=== PATIENT | male | born 2005 | race Caucasian/White ===

== ENCOUNTER 2024-02-25 01:10 | Emergency (ER) | payer SELFPAY ==
--- NOTE | ~2024-02-25 | CT_ITS ---
Noncontrast CT scan of the cervical spine Technique: Multiple contiguous axial [address] images of the cervical spine were obtained and rec onstructed in 2D sagittal and coronal planes on the acquisition scanner. Dose reduction technique was used on this scan by utilizing automated exposure control, adjustment of the mA and/or kV according to patient size. The dose-length product (DLP) was 510.90 mGy-cm. Clinical History: Pain Findings: No fractures or dislocations. There is mild reversal of the normal cervical lordosis. No o ther significant osseous abnormality seen. The intervertebral disc spaces are preserved. No preverte bral soft tissue swelling. Impression: No fracture or subluxation of the cervical spine. Mild reversal normal cervical lordosis. Reviewed, dictated and finalized at location . Impression: No fracture or subluxation of the cervical spine. Mild reversal normal cervical lordosis.
--- NOTE | ~2024-02-25 | CT_ITS ---
Non-contrast Head CT History: Unresponsive Technique: Axial non-contrast imaging of the brain was performed. Dose reduction technique was used on this scan by utilizing automated exposure control and iterative reconstruction technique. The dose -length product (DLP) was 605.33 mGy-cm. Findings: There is no evidence of intracranial hemorrhage, mass lesion, or acute infarct. Brain par enchyma appears normal. The ventricles and subarachnoid spaces are normal in size. The calvarium ap pears normal. The visualized paranasal sinuses and mastoid air cells are clear. Impression: No significant abnormality seen. Reviewed, dictated and finalized at location . Impression: No significant abnormality seen.
[2024-02-25 01:11] VITALS: BP 113/52; PULSE 74; RESP 24; TEMP 36.4; O2SAT 71
--- NOTE | 2024-02-25 01:18 | ECG_ITS ---
Test Date: 2024-02-25 01:20:18 Measurements Intervals [place] Rate: 74 P: 53 CO: 166 QRS: 55 QRSD: 112 T: 42 QT: 365 QTc: 407 Interpretive Statements SINUS RHYTHM INTRAVENTRICULAR CONDUCTION DELAY BORDERLINE ECG No previous ECG available for comparison Electronically Signed On 02-25-2024 06:46:30 CDT by Arden Shepherd D.O.
[2024-02-25 01:19] VITALS: PULSE 79
[2024-02-25 01:22] VITALS: BP 113/52; PULSE 76; RESP 18; TEMP 36.4; O2SAT 99
[2024-02-25 02:05] LABS: Basophils Absolute Auto 0.2 K/mm3 (0.0-0.1); Basophils Percent Auto 1.7 % (0.2-1.2); Eosinophils Absolute Auto 0.1 K/mm3 (0-0.3); Eosinophils Percent Auto 1.2 % (0-4.4); Hematocrit 43.7 % (42.0-52.0); Hemoglobin 15.1 g/dL (14.0-18.0); Immature Granulocyte Absolute 0.05 K/mm3 (0.00-0.031); Immature Granulocyte Percent A 0.6 % (0-0.5); Lymphocytes Absolute Auto 2.94 K/mm3 (0.9-3.2); Lymphocytes Percent Auto 32.8 % (18.3-44.2); Mean Corpuscular HGB Conc 34.6 g/dl (32-36); Mean Corpuscular Hemoglobin 32.1 pg (26-34); Mean Corpuscular Volume 92.8 fl (80-100); Mean Platelet Volume 11.1 fl (7.4-10.4); Monocytes Absolute Auto 0.6 K/mm3 (0.1-0.6); Monocytes Percent Auto 6.3 % (2.6-8.5); Neutrophils Absolute Auto 5.2 K/mm3 (1.3-6.7); Neutrophils Percent Auto 57.4 % (45.5-73.1); Platelet Count Result 204 k/mm3 (150-375); Red Blood Count 4.71 M/mm3 (4.6-6.20); Red Cell Distribution Width 12.6 % (11.5-14.5)
[2024-02-25 02:20] LABS: Anion Gap 16 mmol/L (4-12); Blood Urea Nitrogen 10 mg/dL (9-20); Carbon Dioxide 25 mmol/L (22-30); Chloride 102 mmol/L (98-107); Estimated CRCL calculation 114 ml/min; Estimated Glomerular Filt Rate > 60; Glucose 104 mg/dL (65-110); Potassium 3.5 mmol/L (3.4-5.0); Sodium 143 mmol/L (137-145)
[2024-02-25 02:24] VITALS: O2SAT 100
[2024-02-25 02:45] LABS: Ethanol 455 mg/dL (<10)
--- NOTE | 2024-02-25 03:20 | ED.GENADULT ---
HPI - General Adult General Chief complaint: Alcohol Stated complaint: unresponsive, etoh Time Seen by Provider: 02/25/24 01:29 History of Present Illness HPI narrative: Patient is a 19-year-old male who presents ER after being found unconscious on a sidewalk outside of a bar. Patient has an abrasion to the lateral eyebrow on the right side. Unable to provide a history. Narcan given with no response. Patient had a friend urine him he also woke up and ran away. Related Data Allergies Allergy/AdvReac Type Severity Reaction Status Date / Time No Known Allergies Allergy Unverified 09/15/19 08:29 Review of Systems Review of Systems: ROS unobtainable: Yes unobtainable due to medical condition PMFSH Past Medical History Medical History (Updated 02/25/24 @ 06:30 by Ruddy Laughlin MD) Pilonidal cyst Family History Family History (Updated 07/29/18 @ 08:18 by DOCTOR UNKNOWN) Other Diabetes mellitus Family history of cardiovascular disease Family history of kidney disease Family history of malignant neoplasm Social History Social History Smoking status: Never smoker Alcohol intake: never Exam Narrative: GENERAL: Intoxicated and sleeping, well-nourished, and in no acute distress. HEAD: Normocephalic, abrasion lateral to the right eyebrow. EYES: PERRL and EOMI. NECK: C-spine immobilized. ENT: Mucous membranes moist. CHEST: Clear to auscultation. No respiratory distress. HEART: Regular rate and rhythm. Normal peripheral pulses. ABDOMEN: Soft, nontender, nondistended. EXTREMITIES: Normal range of motion. No edema. SKIN: Warm, dry, no rash. PSYCH: Normal mood and affect. Course Course Emergency Course: 0323: Patient is sleeping. Father bedside. Discussed plan is to observe until clinically sober. 0627: patient awake alert orient x3. Mildly intoxicated. Father here bedside and feels comfortable taking patient home. Vital Signs Vital signs: Vital Signs Temperature 97.5 F L 02/25/24 01:11 Pulse Rate 74 02/25/24 01:11 Respiratory Rate 24 H 02/25/24 01:11 Blood Pressure 113/52 L 02/25/24 01:11 Pulse Oximetry 71 L 02/25/24 01:11 Oxygen Delivery Room Air 02/25/24 01:11 Temperature 97.5 F L 02/25/24 01:22 Pulse Rate 65 02/25/24 05:06 Respiratory Rate 16 02/25/24 05:06 Blood Pressure 116/55 L 02/25/24 05:06 Pulse Oximetry 100 02/25/24 05:06 Oxygen Delivery Room Air 02/25/24 02:24 Oxygen Flow Rate 15 02/25/24 01:22 Medical Decision Making Vital Signs Vital Signs: Vital Signs Temperature 97.5 F L 02/25/24 01:11 Pulse Rate 74 02/25/24 01:11 Respiratory Rate 24 H 02/25/24 01:11 Blood Pressure 113/52 L 02/25/24 01:11 Pulse Oximetry 71 L 02/25/24 01:11 Oxygen Delivery Room Air 02/25/24 01:11 Temperature 97.5 F L 02/25/24 01:22 Pulse Rate 65 02/25/24 05:06 Respiratory Rate 16 02/25/24 05:06 Blood Pressure 116/55 L 02/25/24 05:06 Pulse Oximetry 100 02/25/24 05:06 Oxygen Delivery Room Air 02/25/24 02:24 Oxygen Flow Rate 15 02/25/24 01:22 Lab Data 02/25/24 01:58 02/25/24 01:58 Labs: Lab Results 02/25/24 Range/Units 01:58 WBC 9.0 (4.5-10.0) K/mm3 RBC 4.71 (4.6-6.20) M/mm3 Hgb 15.1 (14.0-18.0) g/dL Hct 43.7 (42.0-52.0) % MCV 92.8 (80-100) fl MCH 32.1 (26-34) pg MCHC 34.6 (32-36) g/dl RDW 12.6 (11.5-14.5) % Plt Count 204 (150-375) k/mm3 MPV 11.1 H (7.4-10.4) fl Immature Gran % (Auto) 0.6 H (0-0.5) % Neut % (Auto) 57.4 (45.5-73.1) % Lymph % (Auto) 32.8 (18.3-44.2) % [place] % (Auto) 6.3 (2.6-8.5) % Eos % (Auto) 1.2 (0-4.4) % Baso % (Auto) 1.7 H (0.2-1.2) % Lymph # (Auto) 2.94 (0.9-3.2) K/mm3 [place] # (Auto) 0.6 (0.1-0.6) K/mm3 Eos # (Auto) 0.1 (0-0.3) K/mm3 Baso # (Auto) 0.2 H (0.0-0.1) K/mm3 Abs Immat Gran (auto) 0.05 H (0.00-0.031) K/mm
[2024-02-25 03:30] VITALS: BP 107/49; PULSE 75; RESP 20; O2SAT 100
--- NOTE | 2024-02-25 04:00 | PC.NURSE ---
Pt awake and becoming verbally aggressive towards father. Pt ripped apart c collar prior to taking it off. Pt informed that he will not be able to leave the hospital until his scans and better lab results come back. Nurse, tech, & security at bedside.
[2024-02-25 05:06] VITALS: BP 116/55; PULSE 65; RESP 16; O2SAT 100
== END 2024-02-25 06:45 | disposition home or self-care (01) ==
PROVIDERS: Emergency Provider Emergency Medicine
DX: S00.211A Abrasion of right eyelid and periocular area, initial encounter (principal); X58.XXXA Exposure to other specified factors, initial encounter
CPT/HCPCS: 36415; 70450; 72125; 80048; 80307; 85025; 93005; 99284